=== PATIENT | female | born 1975 | race Two or more races ===

== ENCOUNTER 2016-10-20 11:33 | Emergency (ER) | payer MEDICAID ==
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
== END 2016-10-20 12:14 | disposition disaster alternative care site (69) ==
LOC: GMED 11:33
DX: G89.29 Other chronic pain (principal); M79.605 Pain in left leg; Z79.899 Other long term (current) drug therapy; Z98.890 Other specified postprocedural states